=== PATIENT | female | born 1930 | race Caucasian/White ===

== ENCOUNTER 2018-01-12 04:41 | Inpatient (IN) | payer MEDICARE ==
[2018-01-12] VITALS (12 sets, daily range): BP systolic 129–203; BP diastolic 54–97; Ht 152.4 cm; Wt 48.5 kg
[~2018-01-12] VITALS: Ht 152.4 cm; Wt 48.5 kg
[2018-01-12] MEDS ORDERED: LISINOPRIL2.5 MG PO (04:47)
[2018-01-12] MEDS ORDERED: BAYER CHEWABLE81 MG PO (04:47)
[2018-01-12] MEDS ORDERED: HCTZ25 MG PO (04:48)
[2018-01-12 09:39] LABS: BASOPHILS 0.5 % (0-2); EOSINOPHILS 0.8 % (0-7); HEMATOCRIT 35.7 % (36.0-48.0); HEMOGLOBIN 11.7 g/dL (12-16); IMMATURE GRANULOCYTES 0.2 % (0-5); LYMPHOCYTES 11.6 % (15-50); MCHC 32.8 g/dL (31.0-37.0); MCV 91.5 fL (80.0-100.0); MEAN PLATELET VOLUME 9.4 fL (7.4-10.4); NEUTROPHILS 80.9 % (40-80); PLATELET COUNT 288 10x3/uL (130-400); RDW 12.7 % (11.5-14.5); WBC 9.2 10x3/uL (4.8-10.8)
[2018-01-12 09:56] LABS: ALBUMIN 3.4 g/dL (3.4-5.0); ANION GAP 9.8 mmol/L (8-16); BILIRUBIN - TOTAL 0.44 mg/dL (0.2-1.3); CALCIUM 9.3 mg/dL (8.5-10.1); CARBON DIOXIDE 30.4 mmol/L (21.0-32.0); CREATININE - SERUM 1.4 mg/dL (0.6-1.3); POTASSIUM - SERUM 4.2 mmol/L (3.5-5.1); PROTEIN - SERUM 6.3 g/dL (6.4-8.2)
[2018-01-12] MEDS ORDERED: HYDROCODON-ACE1 EAC7 PO (12:21)
== END 2018-01-12 19:52 | disposition home or self-care (01) | DRG 352 ==
LOC: D.ER 04:41 → D.MS 05:12
PROVIDERS: Emergency Medicine; Surgery
PROC: 0YU50JZ Supplement Right Inguinal Region with Synthetic Substitute, Open Approach (ICD-10-PCS; principal; 2018-01-12 10:00)
DX: K40.30 Unilateral inguinal hernia, with obstruction, without gangrene, not specified as recurrent (principal); I10 Essential (primary) hypertension